=== PATIENT | male | born 2000 | race Caucasian/White ===

== ENCOUNTER 2023-03-27 12:54 | Outpatient (CLI) | payer BC, MEDICAID, SELFPAY | END 2023-03-27 12:55 | disposition home or self-care (01) | PROVIDERS: PCP Family Medicine; Visit Provider Family Medicine | DX: Z00.00 Encounter for general adult medical examination without abnormal findings (principal); R53.83 Other fatigue | CPT/HCPCS: 80048; 80076; 84443; 85025; 86140 ==